=== PATIENT | male | born 1990 | race Caucasian/White ===

== ENCOUNTER 2020-05-11 02:03 | Emergency (ER) | payer BC ==
[2020-05-11] MEDS ORDERED: Adacel (T-DAP) 0.5 ML SYRINGE ONE (02:29)
[2020-05-11] MEDS ORDERED: Triple Antibiotic Oint 1 GM Packet ONE (02:29)
[2020-05-11] MEDS ORDERED: Rabies Vaccine Human 2.5 UNITS VIAL IM ONE (02:45)
[2020-05-11] MEDS ORDERED: Amoxicillin/Potassium Clav 875 MG TAB PO SCH (02:45)
== END 2020-05-11 03:48 | disposition home or self-care (01) ==
LOC: ERS 02:03
DX: S61.052A Open bite of left thumb without damage to nail, initial encounter (principal); W55.01XA Bitten by cat, initial encounter
CPT/HCPCS: 90375; 90471; 90472; 90675; 90715; 96372

== ENCOUNTER → 2020-05-14 | Day surgery (SDC) | payer BC ==
[~2020-05-14] MED LIST: Rabies Vaccine Human 2.5 UNITS VIAL IM ONE
== END ==
LOC: ER/OP 16:10
DX: Z29.14 Encounter for prophylactic rabies immune globulin (principal)
CPT/HCPCS: 90471; 90675

== ENCOUNTER 2020-05-18 19:11 | Emergency (ER) | payer BC ==
[2020-05-18] MEDS ORDERED: Rabies Vaccine Human 2.5 UNITS VIAL IM ONE (19:30)
== END 2020-05-18 19:49 | disposition home or self-care (01) ==
LOC: ERS 19:11
DX: Z23 Encounter for immunization (principal)
CPT/HCPCS: 90471; 90675

== ENCOUNTER 2020-05-25 21:24 | Emergency (ER) | payer BC ==
[2020-05-25] MEDS ORDERED: Rabies Vaccine Human 2.5 UNITS VIAL IM ONE (22:00)
== END 2020-05-25 21:57 | disposition home or self-care (01) ==
LOC: ERS 21:24
DX: Z23 Encounter for immunization (principal)
CPT/HCPCS: 90471; 90675